=== PATIENT | female | born 1980 ===

== ENCOUNTER 2019-05-10 11:01 | Outpatient (REF) | payer MEDICAID, SELFPAY ==
[2019-05-10 21:28] LABS: HCT 41.1 % (36.0-46.0); HGB 13.8 g/dL (12.0-15.5)
[2019-05-10 21:47] LABS: Glucose 88 mg/dL (70-100); TSH (W/Ref FT4) 1.23 uIU/mL (0.358-3.74)
== END 2019-05-10 11:21 ==
LOC: NCHCN 11:01
PROVIDERS: PCP Family Medicine; Visit Provider Family Medicine
DX: R63.5 Abnormal weight gain (principal); R53.83 Other fatigue
CPT/HCPCS: 82947; 84443; 85014; 85018